=== PATIENT | female | born 1955 ===

== ENCOUNTER → 2018-09-02 | Outpatient (CLI) | payer OTHER | LOC: BMCIMAGING 14:29 | PROVIDERS: ATTEND Physician Assistant | DX: Z12.31 Encounter for screening mammogram for malignant neoplasm of breast (principal) ==

== ENCOUNTER → 2018-09-07 | Outpatient (CLI) | payer OTHER | LOC: BMCIMAGING 13:41 | PROVIDERS: ATTEND Physician Assistant | DX: Z13.820 Encounter for screening for osteoporosis (principal); M81.0 Age-related osteoporosis without current pathological fracture; Z78.0 Asymptomatic menopausal state ==